=== PATIENT | female | born 1990 | race Caucasian/White ===

== ENCOUNTER 2019-06-15 22:07 | Emergency (ER) | payer OTHER ==
[~2019-06-15] VITALS: Ht 162.6 cm; Wt 65.3 kg
[2019-06-15 22:13] VITALS: Ht 162.6 cm; Wt 65.3 kg
[2019-06-16 00:06] LABS: UA SPECIFIC GRAVITY 1.025 (1.005-1.035); microscopic required? YES; urine erythrocyte NEGATIVE (NEGATIVE)
[2019-06-16 02:57] VITALS: BP 109/70
== END 2019-06-16 02:57 | disposition home or self-care (01) ==
LOC: ED 22:07
PROVIDERS: Emergency Medicine
DX: N76.0 Acute vaginitis (principal)
CPT/HCPCS: 87491; 87591

== ENCOUNTER 2019-07-25 02:08 | Emergency (ER) | payer OTHER ==
[~2019-07-25] VITALS: Ht 149.9 cm; Wt 63.7 kg
[2019-07-25 02:20] VITALS: Ht 149.9 cm; Wt 63.7 kg
[2019-07-25 05:24] VITALS: BP 108/64
== END 2019-07-25 05:24 | disposition home or self-care (01) ==
LOC: ED 02:08
DX: A54.01 Gonococcal cystitis and urethritis, unspecified (principal)
CPT/HCPCS: 87491; 87591; J0696

== ENCOUNTER 2020-06-20 06:06 | Emergency (ER) | payer OTHER ==
[~2020-06-20] VITALS: Ht 162.6 cm; Wt 72.6 kg
[2020-06-20 06:25] VITALS: BP 121/75; Ht 162.6 cm; Wt 72.6 kg
[2020-06-20 07:18] LABS: microscopic required? YES; urine erythrocyte NEGATIVE (NEGATIVE)
[2020-06-20] MEDS ORDERED: KEFLEX500 M1 PO (07:31)
== END 2020-06-20 07:52 | disposition home or self-care (01) ==
LOC: ED 06:06
PROVIDERS: Emergency Medicine
DX: O23.03 Infections of kidney in pregnancy, third trimester (principal); Z3A.29 29 weeks gestation of pregnancy